=== PATIENT | male | born 1970 | race African-American/Black ===

== ENCOUNTER 2016-10-31 12:25 | Inpatient (IN) | payer OTHER ==
[2016-10-31 13:10] VITALS: BMI 20.9
--- NOTE | 2016-10-31 14:17 | HP ---
CIWA Score - CIWA Score Nausea/Vomitin Muscle Tremors: 3 Anxiety: 3 Agitation: 3 Paroxysmal Sweats: 2 Orientation: 0-Oriented Tacttile Disturbances: 2-Mild Itch/Numbness/Burn Auditory Disturbances: 2-Mild Harshness/Frighten Visual Disturbances: 2-Mild Sensitivity Headache: 2-Mild CIWA-Ar Total Score: 22 Admission ROS BHS - HPI Chief Complaint: i need help to stop drinking alcohol and marijuana Allergies/Adverse Reactions: Allergies Allergy/AdvReac Type Severity Reaction Status Date / Time No Known Allergies Allergy Verified 10/31/16 13:41 History of Present Illness: this 46 years old male with alcohol and marijuana dependence,seeking help for detox,,last detox [facility] 08/28 not completed syncope alcohol related fx of right tibia and fibula [facility] 08/28 fx of right ankle in 06/30 ambulation with cane no significant period of sobriety Exam Limitations: No Limitations - Ebola screening Have you traveled outside of the country in the last 21 days: No Have you had contact with anyone from an Ebola affected area: No Have you been sick,other than usual withdrawal symptoms: No - Review of Systems Constitutional: Loss of Appetite, Malaise, Night Sweats, Changes in sleep, Weakness, Unintentional Wgt. Loss EENT: reports: Nose Congestion Respiratory: reports: No Symptoms reported Cardiac: reports: No Symptoms Reported GI: reports: Diarrhea, Nausea, Vomiting, Abdominal cramping : reports: No Symptoms Reported Musculoskeletal: reports: Back Pain, Joint Pain, Muscle Pain, Other (surgery for fx of tibia and fibula surgery for fx of ankle right) Integumentary: reports: Dryness Neuro: reports: Headache, Tremors Endocrine: reports: No Symptoms Reported Hematology: reports: No Symptoms Reported Psychiatric: reports: No Sypmtoms Reported, Judgement Intact, Mood/Affect Appropiate, Orientated x3 Patient History - Patient Medical History Hx Anemia: No Hx Asthma: No Hx Chronic Obstructive Pulmonary Disease (COPD): No Hx Cancer: No Hx Cardiac Disorders: No Hx Congestive Heart Failure: No Hx Hypertension: No Hx Hypercholesterolemia: No Hx Pacemaker: No HX Cerebrovascular Accident: No Hx Seizures: No Hx Dementia: No Hx Diabetes: No Hx Gastrointestinal Disorders: No Hx Genitourinary Disorders: No Hx Sexually Transmitted Disorders: Yes (syphilis at age 17) Hx Renal Disease (ESRD): No Hx Thyroid Disease: No Hx Human Immunodeficiency Virus (HIV): No (last 05/30 negative) Hx Hepatitis C: No Hx Depression: No Hx Suicide Attempt: No Hx Schizophrenia: No Other Medical History: no suicidal,no homicidal - Patient Surgical History Past Surgical History: Yes Hx Neurologic Surgery: No Hx Cataract Extraction: No Hx Cardiac Surgery: No Hx Lung Surgery: No Hx Breast Surgery: No Hx Breast Biopsy: No Hx Abdominal Surgery: No Hx Appendectomy: No Hx Cholecystectomy: No Hx Genitourinary Surgery: No Hx Section: Yes (right ankle/leg in 05/2016 and 07/2016) Hx Orthopedic Surgery: No Anesthesia Reaction: No - PPD History Previous Implant?: Yes Documented Results: Negative w/o proof Implanted On Prior R Admission?: No PPD to be Administered?: Yes - Smoking Cessation Smoking history: Current every day smoker Have you smoked in the past 12 months: Yes Aproximately how many cigarettes per day: 15 Hx Chewing Tobacco Use: No Initiated information on smoking cessation: Yes 'Breaking Loose' booklet given: 10/31/16 - Substance & Tx. History Hx Alcohol Use: Yes Hx Substance Use: Yes Substance Use Type: Alcohol, Marijuana Hx Substance Use Treatment: Yes (last [facility] 08/28 not completed) - Substances Abused Alcohol-vodka/cognac Route: Oral Frequency: Daily Amount used: 2 1/2 pts. Age of first use: 20 Date of Last Use: 10/30/16 Marijuana Route: Smoking Frequency: Daily Amount used: $10-15 Age of first use: 15 Date of Last Use: 10/31/16 Family Disease History - Family Disease History Family Disease History: Other: Father (alcohol,), Brother (alcohol,dsa) Admission Physical Exam BHS - Vital Signs Vital Signs: Vital Signs - 24 hr 10/31/16 13:07 Temperature 97.4 F L Pulse Rate 79 Respiratory 20 Rate Blood Pressure 130/77 - Physical General Appearance: Yes: Moderate Distress, Tremorous, Irritable, Sweating, Anxious HEENTM: Yes: Within Normal Limits, Normal ENT Inspection, Pharynx Normal Respiratory: Yes: Lungs Clear, Normal Breath Sounds, No Respiratory Distress Neck: Yes: Within Normal Limits Breast: Yes: Within Normal Limits Cardiology: Yes: Within Normal Limits, Regular Rhythm, Regular Rate, S1, S2 Abdominal: Yes: Within Normal Limits, Normal Bowel Sounds, Non Tender, Flat, Soft Genitourinary: Yes: Within Normal Limits Back: Yes: Within Normal Limits, Normal Inspection, Muscle Spasm Musculoskeletal: Yes: full range of Motion, Back pain, Muscle Pain Extremities: Yes: Tremors, Other (scar of right ankle and right knee) Neurological: Yes: superintendent overhead distribution II-XII NML intact, Fully Oriented, Alert, Motor Strength 5/5 Integumentary: Yes: Dry Lymphatic: Yes: Within Normal Limits - Diagnostic (1) Alcohol dependence with uncomplicated withdrawal Current Visit: Yes Status: Acute (2) Cannabis dependence Current Visit: Yes Status: Acute (3) Weight loss Current Visit: Yes Status: Acute (4) Nicotine dependence Current Visit: Yes Status: Acute (5) Tibia/fibula fracture Current Visit: Yes Status: Acute (6) Ankle fracture Current Visit: Yes Status: Acute (7) Use of cane as ambulatory aid Current Visit: Yes Status: Acute Cleared for Admission [facility] - Detox or Rehab [facility] Level of Care: Medically Managed Detox Regimen/Protocol: Librium [facility] Breath Alcohol Content Breath Alcohol Content: 0.101 Urine Drug Screen - Results Drug Screen Negative: No Urine Drug Screen Results: THC-Marijuana
[2016-10-31] MEDS ORDERED: IBUPROFEN 400 MG TABLET (FP) PO PRN (14:30)
[2016-10-31] MEDS ORDERED: guaiFENesin/D-METHORPHAN HB 10 ML UNIT-DOSE CUPS PO PRN (14:30)
[2016-10-31] MEDS ORDERED: P-EPHED 60MG/TRIPROLIDI 2.5MG TABLET PO PRN (14:30)
[2016-10-31] MEDS ORDERED: diphenhydrAMINE HCL 50 MG CAPSULE PO PRN (14:30)
[2016-10-31] MEDS ORDERED: chlordiazePOXIDE HCL 25 MG CAPSULE PO PRN (14:30)
[2016-10-31] MEDS ORDERED: MAG HYDROX/AL HYDROX/SIMETH 30 ML UNIT-DOSE CUP PO PRN (14:30)
[2016-10-31] MEDS ORDERED: MAGNESIUM CITRATE 300 ML BOTTLE PO PRN (14:30)
[2016-10-31] MEDS ORDERED: hydrOXYzine PAMOATE 50 MG CAPSULE (FP) PO PRN (14:30)
[2016-10-31] MEDS ORDERED: MAGNESIUM HYDROX 2400MG/30ML ORAL SUSPENSION 30 ML CUP PO PRN (14:30)
[2016-10-31] MEDS ORDERED: ACETAMINOPHEN 325 MG TABLET (FP) PO PRN (14:30)
[2016-10-31] MEDS ORDERED: MENTHOL/PHENOL 1 EACH UD MM PRN (14:30)
[2016-10-31] MEDS ORDERED: LOPERAMIDE HCL 2 MG CAPSULE PO PRN (14:30)
[2016-10-31] MEDS ORDERED: chlordiazePOXIDE HCL 25 MG CAPSULE PO ONE (14:38)
[2016-10-31] MEDS: NICOTINE 21 MG/24 HOURS TOPICAL PATCH TD SCH (15:18)
[2016-10-31] MEDS: chlordiazePOXIDE HCL 25 MG CAPSULE PO SCH ×2 (17:07→22:30)
[2016-10-31 18:06] LABS: URINE APPEARANCE CLEAR; URINE BILIRUBIN NEGATIVE (NEGATIVE); URINE BLOOD NEGATIVE (NEGATIVE); URINE COLOR YELLOW; URINE GLUCOSE (UA) NEGATIVE (NEGATIVE); URINE KETONE NEGATIVE (NEGATIVE); URINE LEUK ESTERASE NEGATIVE (NEGATIVE); URINE NITRITE NEGATIVE (NEGATIVE); URINE PROTEIN NEGATIVE (NEGATIVE); URINE UROBILINOGEN NEGATIVE E.U./dl (0.2-1.0)
[2016-10-31] MEDS: THIAMINE HCL 100 MG TABLET (FP) PO SCH (22:30)
[2016-11-01] MEDS: chlordiazePOXIDE HCL 25 MG CAPSULE PO SCH ×4 (06:05→22:35)
[2016-11-01 09:45] LABS: MEAN CELL VOLUME 78.7 fl (80-96); MEAN PLT VOLUME 8.8 fl (7.5-11.1); PLATELET COUNT 243 K/MM3 (134-434); RDW 16.3 % (11.9-15.9); WHITE BLOOD COUNT 8.2 K/mm3 (4.0-10.0)
[2016-11-01 09:55] LABS: ALBUMIN 3.8 g/dl (3.4-5.0); ANION GAP 8 (8-16); CALCIUM 8.8 mg/dL (8.5-10.1); CO2 28 mmol/L (21-32); CREATININE 1.2 mg/dL (0.7-1.3); GLUCOSE,RANDOM 140 mg/dL (74-106); SGOT/AST 55 U/L (15-37); SGPT/ALT 42 U/L (12-78)
[2016-11-01 09:56] LABS: ALK PHOS 95 U/L (45-117); BILIRUBIN,TOTAL 0.5 mg/dL (0.2-1.0); TOT PROT 7.7 g/dl (6.4-8.2)
--- NOTE | 2016-11-01 10:32 | PN ---
[facility] CIWA - CIWA Score Nausea/Vomitin-No Nausea/No Vomiting Muscle Tremors: 4-Moderate,w/Arms Extend Anxiety: 4-Mod. Anxious/Guarded Agitation: 4-Moderately Restless Paroxysmal Sweats: 1-Minimal Palms Moist Orientation: 0-Oriented Tacttile Disturbances: 3-Moderate Itch/Numb/Burn Auditory Disturbances: 0-None Visual Disturbances: 0-None Headache: 0-None Present CIWA-Ar Total Score: 16 S Progress Note (SOAP) Subjective: ANXIETY,SWEATS,TREMORS,FATIGUE. Objective: 11/01/16 10:31 Vital Signs Temperature 98.2 F 11/01/16 09:32 Pulse Rate 66 11/01/16 09:32 Respiratory Rate 18 11/01/16 09:32 Blood Pressure 120/78 11/01/16 09:32 O2 Sat by Pulse Oximetry (%) Laboratory Last Values WBC 8.2 K/mm3 (4.0-10.0) 11/01/16 06:00 RBC 5.17 M/mm3 (4.00-5.60) 11/01/16 06:00 Hgb 13.4 GM/dL (11.7-16.9) 11/01/16 06:00 Hct 40.7 % (35.4-49) 11/01/16 06:00 MCV 78.7 fl (80-96) L 11/01/16 06:00 MCHC 33.0 g/dl (32.0-35.9) 11/01/16 06:00 RDW 16.3 % (11.9-15.9) H 11/01/16 06:00 Plt Count 243 K/MM3 (134-434) 11/01/16 06:00 MPV 8.8 fl (7.5-11.1) 11/01/16 06:00 Sodium 141 mmol/L (136-145) 11/01/16 06:00 Potassium 3.9 mmol/L (3.5-5.1) 11/01/16 06:00 Chloride 105 mmol/L (98-107) 11/01/16 06:00 Carbon Dioxide 28 mmol/L (21-32) 11/01/16 06:00 Anion Gap 8 (8-16) 11/01/16 06:00 BUN 17 mg/dL (7-18) 11/01/16 06:00 Creatinine 1.2 mg/dL (0.7-1.3) 11/01/16 06:00 Creat Clearance w eGFR > 60 (>60) 11/01/16 06:00 Random Glucose 140 mg/dL (74-106) H 11/01/16 06:00 Calcium 8.8 mg/dL (8.5-10.1) 11/01/16 06:00 Total Bilirubin 0.5 mg/dL (0.2-1.0) 11/01/16 06:00 AST 55 U/L (15-37) H 11/01/16 06:00 ALT 42 U/L (12-78) 11/01/16 06:00 Alkaline Phosphatase 95 U/L (45-117) 11/01/16 06:00 Total Protein 7.7 g/dl (6.4-8.2) 11/01/16 06:00 Albumin 3.8 g/dl (3.4-5.0) 11/01/16 06:00 Urine Color Yellow 10/31/16 15:00 Urine Appearance Clear 10/31/16 15:00 Urine pH 5.0 (5.0-8.0) 10/31/16 15:00 Ur Specific [place] >= 1.030 (1.005-1.025) H 10/31/16 15:00 Urine Protein Negative (NEGATIVE) 10/31/16 15:00 Urine Glucose (UA) Negative (NEGATIVE) 10/31/16 15:00 Urine Ketones Negative (NEGATIVE) 10/31/16 15:00 Urine Blood Negative (NEGATIVE) 10/31/16 15:00 Urine Nitrite Negative (NEGATIVE) 10/31/16 15:00 Urine Bilirubin Negative (NEGATIVE) 10/31/16 15:00 Urine Urobilinogen Negative E.U./dl (0.2-1.0) 10/31/16 15:00 Ur Leukocyte Esterase Negative (NEGATIVE) 10/31/16 15:00 Assessment: 11/01/16 10:31 WITHDRAWAL SX Plan: CONTINUE DETOX
[2016-11-01] MEDS: NICOTINE 21 MG/24 HOURS TOPICAL PATCH TD SCH (10:46)
[2016-11-01] MEDS: PRENATAL VITAMINS W/ FOLIC ACID TABLET (FP) PO SCH (10:46)
--- NOTE | 2016-11-01 11:04 | EKG ---
Test Reason : Blood Pressure : / mmHG Vent. Rate : 095 BPM Atrial Rate : 095 BPM P-R Int : 132 ms QRS Dur : 082 ms QT Int : 362 ms P-R-T Axes : 073 014 039 degrees QTc Int : 454 ms NORMAL SINUS RHYTHM NORMAL ECG NO PREVIOUS ECGS AVAILABLE Confirmed by RACQUEL DICKINSON, MELY ([id number]) on 11/01/2016 11:04:21 AM Referred By: Confirmed By:MELY CLEMENT MD
[2016-11-01] MEDS: THIAMINE HCL 100 MG TABLET (FP) PO SCH (22:35)
[2016-11-02] MEDS: chlordiazePOXIDE HCL 25 MG CAPSULE PO SCH (06:10)
--- NOTE | 2016-11-02 10:02 | PN ---
[facility] CIWA - CIWA Score Nausea/Vomitin-No Nausea/No Vomiting Muscle Tremors: 3 Anxiety: 3 Agitation: 3 Paroxysmal Sweats: 3 Orientation: 0-Oriented Tacttile Disturbances: 3-Moderate Itch/Numb/Burn Auditory Disturbances: 0-None Visual Disturbances: 0-None Headache: 0-None Present CIWA-Ar Total Score: 15 S Progress Note (SOAP) Subjective: SLIGHT ANXIETY,SWEATS. OOB AND AMBULATING ON HALLWAY/DAYROOM WITH NAD. Objective: 11/02/16 10:02 Vital Signs Temperature 97.2 F L 11/01/16 22:34 Pulse Rate 75 11/01/16 22:34 Respiratory Rate 18 11/02/16 06:30 Blood Pressure 126/79 11/01/16 22:34 O2 Sat by Pulse Oximetry (%) Laboratory Last Values WBC 8.2 K/mm3 (4.0-10.0) 11/01/16 06:00 RBC 5.17 M/mm3 (4.00-5.60) 11/01/16 06:00 Hgb 13.4 GM/dL (11.7-16.9) 11/01/16 06:00 Hct 40.7 % (35.4-49) 11/01/16 06:00 MCV 78.7 fl (80-96) L 11/01/16 06:00 MCHC 33.0 g/dl (32.0-35.9) 11/01/16 06:00 RDW 16.3 % (11.9-15.9) H 11/01/16 06:00 Plt Count 243 K/MM3 (134-434) 11/01/16 06:00 MPV 8.8 fl (7.5-11.1) 11/01/16 06:00 Sodium 141 mmol/L (136-145) 11/01/16 06:00 Potassium 3.9 mmol/L (3.5-5.1) 11/01/16 06:00 Chloride 105 mmol/L (98-107) 11/01/16 06:00 Carbon Dioxide 28 mmol/L (21-32) 11/01/16 06:00 Anion Gap 8 (8-16) 11/01/16 06:00 BUN 17 mg/dL (7-18) 11/01/16 06:00 Creatinine 1.2 mg/dL (0.7-1.3) 11/01/16 06:00 Creat Clearance w eGFR > 60 (>60) 11/01/16 06:00 Random Glucose 140 mg/dL (74-106) H 11/01/16 06:00 Calcium 8.8 mg/dL (8.5-10.1) 11/01/16 06:00 Total Bilirubin 0.5 mg/dL (0.2-1.0) 11/01/16 06:00 AST 55 U/L (15-37) H 11/01/16 06:00 ALT 42 U/L (12-78) 11/01/16 06:00 Alkaline Phosphatase 95 U/L (45-117) 11/01/16 06:00 Total Protein 7.7 g/dl (6.4-8.2) 11/01/16 06:00 Albumin 3.8 g/dl (3.4-5.0) 11/01/16 06:00 Urine Color Yellow 10/31/16 15:00 Urine Appearance Clear 10/31/16 15:00 Urine pH 5.0 (5.0-8.0) 10/31/16 15:00 Ur Specific [place] >= 1.030 (1.005-1.025) H 10/31/16 15:00 Urine Protein Negative (NEGATIVE) 10/31/16 15:00 Urine Glucose (UA) Negative (NEGATIVE) 10/31/16 15:00 Urine Ketones Negative (NEGATIVE) 10/31/16 15:00 Urine Blood Negative (NEGATIVE) 10/31/16 15:00 Urine Nitrite Negative (NEGATIVE) 10/31/16 15:00 Urine Bilirubin Negative (NEGATIVE) 10/31/16 15:00 Urine Urobilinogen Negative E.U./dl (0.2-1.0) 10/31/16 15:00 Ur Leukocyte Esterase Negative (NEGATIVE) 10/31/16 15:00 RPR Titer Nonreactive (NONREACTIVE) 11/01/16 06:00 Assessment: 11/02/16 10:02 SLIGHT WITHDRAWAL SX Plan: CONTINUE DETOX
[2016-11-02 10:29] VITALS: BP 122/80; PULSE 60; TEMP 97.1
[2016-11-02] MEDS: PRENATAL VITAMINS W/ FOLIC ACID TABLET (FP) PO SCH (10:33)
[2016-11-02] MEDS: NICOTINE 21 MG/24 HOURS TOPICAL PATCH TD SCH (10:33)
[2016-11-02] MEDS ORDERED: chlordiazePOXIDE 5 MG CAPSULE PO SCH ×2 (11:00→17:00)
[2016-11-03] MEDS ORDERED: chlordiazePOXIDE HCL 10 MG CAPSULE PO SCH ×2 (05:00→17:00)
--- NOTE | 2016-11-03 09:44 | DS ---
[facility] Detox Discharge Summary Admission Date: 10/31/16 Discharge Date: 11/02/16 - History Present History: Alcohol Dependence, Cannabis Dependence Additional Comments: PT DECLINED TO COMPLETE DETOX. PT WAS REMINDED BY THIS [employer] THE NEED TO COMPLETE TREATMENT BUT PT INSISTED ON LEAVING. ALERT O X 3. NAD. Pertinent Past History: S/P FX RIGHT ANKLE/LEG WITH SX USE OF CANE FOR AMBULATION - Physical Exam Results Vital Signs: Vital Signs Temperature 97.1 F L 11/02/16 10:28 Pulse Rate 60 11/02/16 10:28 Respiratory Rate 18 11/02/16 10:28 Blood Pressure 122/80 11/02/16 10:28 O2 Sat by Pulse Oximetry (%) Pertinent Admission Physical Exam Findings: WITHDRAWAL SX Laboratory Last Values WBC 8.2 K/mm3 (4.0-10.0) 11/01/16 06:00 RBC 5.17 M/mm3 (4.00-5.60) 11/01/16 06:00 Hgb 13.4 GM/dL (11.7-16.9) 11/01/16 06:00 Hct 40.7 % (35.4-49) 11/01/16 06:00 MCV 78.7 fl (80-96) L 11/01/16 06:00 MCHC 33.0 g/dl (32.0-35.9) 11/01/16 06:00 RDW 16.3 % (11.9-15.9) H 11/01/16 06:00 Plt Count 243 K/MM3 (134-434) 11/01/16 06:00 MPV 8.8 fl (7.5-11.1) 11/01/16 06:00 Sodium 141 mmol/L (136-145) 11/01/16 06:00 Potassium 3.9 mmol/L (3.5-5.1) 11/01/16 06:00 Chloride 105 mmol/L (98-107) 11/01/16 06:00 Carbon Dioxide 28 mmol/L (21-32) 11/01/16 06:00 Anion Gap 8 (8-16) 11/01/16 06:00 BUN 17 mg/dL (7-18) 11/01/16 06:00 Creatinine 1.2 mg/dL (0.7-1.3) 11/01/16 06:00 Creat Clearance w eGFR > 60 (>60) 11/01/16 06:00 Random Glucose 140 mg/dL (74-106) H 11/01/16 06:00 Calcium 8.8 mg/dL (8.5-10.1) 11/01/16 06:00 Total Bilirubin 0.5 mg/dL (0.2-1.0) 11/01/16 06:00 AST 55 U/L (15-37) H 11/01/16 06:00 ALT 42 U/L (12-78) 11/01/16 06:00 Alkaline Phosphatase 95 U/L (45-117) 11/01/16 06:00 Total Protein 7.7 g/dl (6.4-8.2) 11/01/16 06:00 Albumin 3.8 g/dl (3.4-5.0) 11/01/16 06:00 Urine Color Yellow 10/31/16 15:00 Urine Appearance Clear 10/31/16 15:00 Urine pH 5.0 (5.0-8.0) 10/31/16 15:00 Ur Specific [place] >= 1.030 (1.005-1.025) H 10/31/16 15:00 Urine Protein Negative (NEGATIVE) 10/31/16 15:00 Urine Glucose (UA) Negative (NEGATIVE) 10/31/16 15:00 Urine Ketones Negative (NEGATIVE) 10/31/16 15:00 Urine Blood Negative (NEGATIVE) 10/31/16 15:00 Urine Nitrite Negative (NEGATIVE) 10/31/16 15:00 Urine Bilirubin Negative (NEGATIVE) 10/31/16 15:00 Urine Urobilinogen Negative E.U./dl (0.2-1.0) 10/31/16 15:00 Ur Leukocyte Esterase Negative (NEGATIVE) 10/31/16 15:00 RPR Titer Nonreactive (NONREACTIVE) 11/01/16 06:00 - Treatment Hospital Course: Discharged Condition Good Patient has Accepted a Rehab Referral to: [facility] - Medication Discharge Medications: Ambulatory Orders Ibuprofen 800 mg PO BID PRN 10/31/16 - Diagnosis (1) Alcohol dependence with uncomplicated withdrawal Status: Acute (2) Ankle fracture Status: Acute Qualifiers: Encounter type: subsequent encounter (3) Cannabis dependence Status: Acute (4) Nicotine dependence Status: Acute Qualifiers: Nicotine product type: cigarettes Substance use status: in withdrawal Qualified Code(s): F17.213 - Nicotine dependence, cigarettes, with withdrawal (5) Use of cane as ambulatory aid Status: Acute (6) Weight loss Status: Acute - AMA Did Patient Leave Against Medical Advice: Yes (AMA)
== END 2016-11-02 13:04 | disposition left against medical advice (07) | DRG 770 ==
LOC: YASAS 12:25 → Y3N 14:18
PROVIDERS: ADMIT Internal Medicine; ATTEND Internal Medicine
PROC: HZ2ZZZZ Detoxification Services for Substance Abuse Treatment (ICD-10-PCS; principal; 2016-10-31)
DX: F10.230 Alcohol dependence with withdrawal, uncomplicated (principal); F12.20 Cannabis dependence, uncomplicated; F17.210 Nicotine dependence, cigarettes, uncomplicated; R26.2 Difficulty in walking, not elsewhere classified; Z99.89 Dependence on other enabling machines and devices; Z87.898 Personal history of other specified conditions; Z87.81 Personal history of (healed) traumatic fracture; Z87.438 Personal history of other diseases of male genital organs
CPT/HCPCS: 36415; 80053; 81003; 85027; 86593; 93005; 93010